=== PATIENT | male | born 1960 | race Caucasian/White ===

== ENCOUNTER 2019-12-16 14:58 | Observation (INO) ==
[2019-12-16] MEDS ORDERED: Aspirin 81 MG TAB.CHEW PO ONE (15:13)
[2019-12-16] MEDS ORDERED: Nitroglycerin 0.4 MG TAB.SUBL SL PRN (15:13)
[2019-12-16 16:02] LABS: Basophils % 0.9 %; Eosinophils # 0.1 K/mcL (0.0-0.6); Eosinophils % 1.4 %; Hematocrit 43.7 % (37.5-50.1); Hemoglobin 15.4 g/dL (12.9-16.9); Immature Granulocytes % 0.2 % (0-4); Lymphocytes # 1.4 K/mcL (0.6-4.6); Lymphocytes % 32.8 %; Mean Corpuscular HGB Conc 35.2 g/dL (31.6-35.5); Mean Corpuscular Hemoglobin 32.8 pg (28.0-33.3); Mean Corpuscular Volume 93.2 fL (83.0-100.0); Mean Platelet Volume 8.9 fL (9.4-12.4); Monocytes # 0.5 K/mcL (0.0-1.3); Monocytes % 12.6 %; Neutrophils # 2.2 K/mcL (1.6-8.9); Platelet Count 261 K/mcL (140-400); Red Blood Count 4.69 M/mcL (4.19-5.50); Red Cell Distribution Width 14.5 % (11.5-14.5); Segmented Neutrophils % 52.1 %; White Blood Count 4.3 K/mcL (4.3-11.1)
[2019-12-16 16:08] LABS: INR 0.9; Prothrombin Time 9.9 Seconds (9.4-12.1)
[2019-12-16 16:11] LABS: Activated Partial Thrombo Time 24.3 Seconds (26.0-36.0)
[2019-12-16] MEDS ORDERED: Isovue-370 500 ML BOTTLE IVP ONE (16:15)
[2019-12-16 16:22] LABS: Albumin 4.2 g/dL (3.5-5.7); Albumin/Globulin Ratio 1.7 (1.1-2.2); Bilirubin,Direct 0.1 mg/dL (0.0-0.2); Bilirubin,Indirect 0.3 mg/dL (0.0-1.0); Bilirubin,Total 0.4 mg/dL (0.3-1.0); Globulin 2.5 g/dL (2.4-3.5); Total Protein 6.7 g/dL (6.4-8.9)
[2019-12-16 16:24] LABS: BUN/Creatinine Ratio 11 (6-26); Blood Urea Nitrogen 9 mg/dL (8-23); Calcium 9.5 mg/dL (8.6-10.3); Carbon Dioxide 17 mEq/L (23-29); Chloride 99 mEq/L (98-107); Glucose 105 mg/dL (70-105); Osmolality,Calculated 273 (280-300); Sodium 132 mEq/L (136-145); eGFR For African Americans > 60 (> 60); eGFR For Non-African Americans > 60 (> 60)
[2019-12-16 16:25] LABS: Troponin I < 0.03 ng/mL (< 0.04)
[2019-12-16 17:47] LABS: Bilirubin,Urine Negative (Negative); Blood,Urine Negative (Negative); Clarity,Urine Clear (Clear); Color,Urine Yellow (Yellow); Glucose,Urine (UA) Normal (Normal); Ketones,Urine Negative (Negative); Leukocyte Esterase,Urine Negative (Negative); Nitrite,Urine Negative (Negative); PH,Urine 6.5 pH Units (5.0-8.0); Protein,Urine Trace mg/dL (Neg-Trace); Specific Gravity,Urine 1.019 (1.010-1.025); Urobilinogen,Urine Normal (Normal)
[2019-12-16] MEDS ORDERED: Naloxone 0.4 MG/ML INJ IVP PRN (18:20)
[2019-12-16] MEDS ORDERED: Ondansetron 4 MG/2 ML VIAL IVP PRN (18:20)
[2019-12-16] MEDS ORDERED: Perflutren Lipid Microsphere 1.3 ML in 0.9 % Sodium Chloride 8.7 ML IVP PRN (18:21)
[2019-12-16] MEDS ORDERED: *HR* LORazepam 2 MG/ML VIAL IVP PRN ×3 (18:23)
[2019-12-16] MEDS ORDERED: 0.9 % Sodium Chloride 1,000 ML IVC SCH (18:30)
[2019-12-16 18:53] LABS: Amphetamine Screen,Urine Negative ng/mL (Cutoff=1000); Barbiturate Screen,Urine Negative ng/mL (Cutoff=200); Benzodiazepines Screen,Urine Negative ng/mL (Cutoff=200); Cannabinoid Screen,Urine Positive ng/mL (Cutoff = 50); Cocaine Screen,Urine Negative ng/mL (Cutoff= 300); Opiate Screen,Urine Negative ng/mL (Cutoff=300); Phencyclidine Screen,Urine Negative ng/mL (Cutoff=25)
[2019-12-17 04:11] LABS: Basophils % 0.6 %; Eosinophils # 0.2 K/mcL (0.0-0.6); Eosinophils % 3.2 %; Hematocrit 43.9 % (37.5-50.1); Hemoglobin 15.2 g/dL (12.9-16.9); Immature Granulocytes % 0.2 % (0-4); Lymphocytes # 1.7 K/mcL (0.6-4.6); Lymphocytes % 33.9 %; Mean Corpuscular HGB Conc 34.6 g/dL (31.6-35.5); Mean Corpuscular Hemoglobin 32.3 pg (28.0-33.3); Mean Corpuscular Volume 93.4 fL (83.0-100.0); Mean Platelet Volume 9.1 fL (9.4-12.4); Monocytes # 0.8 K/mcL (0.0-1.3); Monocytes % 16.4 %; Neutrophils # 2.3 K/mcL (1.6-8.9); Platelet Count 255 K/mcL (140-400); Red Cell Distribution Width 14.6 % (11.5-14.5); Segmented Neutrophils % 45.7 %; White Blood Count 4.9 K/mcL (4.3-11.1)
[2019-12-17 04:23] LABS: BUN/Creatinine Ratio 19 (6-26); Blood Urea Nitrogen 13 mg/dL (8-23); Carbon Dioxide 25 mEq/L (23-29); Chloride 102 mEq/L (98-107); Glucose 85 mg/dL (70-105); Osmolality,Calculated 279 (280-300); Potassium 4.1 mEq/L (3.5-5.1); Sodium 135 mEq/L (136-145); eGFR For African Americans > 60 (> 60); eGFR For Non-African Americans > 60 (> 60)
[2019-12-17 04:24] LABS: Troponin I < 0.03 ng/mL (< 0.04)
[2019-12-17] MEDS ORDERED: *HR* Heparin 5,000 UNIT/ML VIAL SQ SCH (06:00)
[2019-12-17] MEDS ORDERED: SUMAtriptan succinate 50 MG TABLET PO PRN (08:03)
[2019-12-17] MEDS ORDERED: lisinopriL 10 MG TABLET PO SCH (09:00)
[2019-12-17] MEDS ORDERED: Aspirin Enteric Coated 81 MG Tablet PO SCH (09:00)
[2019-12-17] MEDS ORDERED: Multivit/Ca/Min/Fe/FA 1 TAB TABLET PO SCH (09:00)
[2019-12-17] MEDS ORDERED: Cholecalciferol (D-3) 1,000 UNIT (25MCG) TABLET PO SCH (09:00)
[2019-12-17] MEDS ORDERED: predniSONE 20 MG TABLET PO SCH (09:00)
[2019-12-17 10:58] VITALS: BP 126/74
== END 2019-12-17 13:03 | disposition home or self-care (01) ==
LOC: 3BNU 14:58 → EMEROOARM 14:58 → 3BNU 19:52
PROVIDERS: ADMIT Internal Medicine; ATTEND Internal Medicine

== ENCOUNTER 2020-07-04 17:53 | Inpatient (IN) ==
[2020-07-04] MEDS ORDERED: *HR* LORazepam 2 MG/ML VIAL IVP ONE (18:12)
[2020-07-04 18:41] LABS: Basophils % 0.6 %; Eosinophils # 0.2 K/mcL (0.0-0.6); Eosinophils % 3.4 %; Hematocrit 40.8 % (37.5-50.1); Hemoglobin 14.5 g/dL (12.9-16.9); Immature Granulocytes % 0.2 % (0-4); Lymphocytes # 2.9 K/mcL (0.6-4.6); Lymphocytes % 44.6 %; Mean Corpuscular HGB Conc 35.5 g/dL (31.6-35.5); Mean Corpuscular Hemoglobin 32.9 pg (28.0-33.3); Mean Corpuscular Volume 92.5 fL (83.0-100.0); Mean Platelet Volume 8.9 fL (9.4-12.4); Monocytes # 0.6 K/mcL (0.0-1.3); Monocytes % 9.4 %; Neutrophils # 2.7 K/mcL (1.6-8.9); Platelet Count 234 K/mcL (140-400); Red Blood Count 4.41 M/mcL (4.19-5.50); Red Cell Distribution Width 13.8 % (11.5-14.5); Segmented Neutrophils % 41.8 %; White Blood Count 6.5 K/mcL (4.3-11.1)
[2020-07-04 19:11] LABS: Bilirubin,Urine Negative (Negative); Blood,Urine Negative (Negative); Clarity,Urine Clear (Clear); Color,Urine Colorless (Yellow); Glucose,Urine (UA) Normal (Normal); Ketones,Urine Negative (Negative); Leukocyte Esterase,Urine Negative (Negative); Nitrite,Urine Negative (Negative); Protein,Urine Negative (Neg-Trace); Specific Gravity,Urine < 1.005 (1.010-1.025); Urobilinogen,Urine Normal (Normal)
[2020-07-04 19:11] LABS: Acetaminophen < 10 mcg/mL (10-20); BUN/Creatinine Ratio 5 (6-26); Blood Urea Nitrogen 4 mg/dL (8-23); Carbon Dioxide 20 mEq/L (23-29); Chloride 96 mEq/L (98-107); Ethanol 416 mg/dL (Less than 10); Glucose 111 mg/dL (70-105); Osmolality,Calculated 266 (280-300); Potassium 4.1 mEq/L (3.5-5.1); Salicylate < 2.5 mg/dL (15.0-30.0); Sodium 129 mEq/L (136-145); eGFR For African Americans > 60 (> 60); eGFR For Non-African Americans > 60 (> 60)
[2020-07-04 19:22] LABS: Amphetamine Screen,Urine Negative ng/mL (Cutoff=1000); Barbiturate Screen,Urine Negative ng/mL (Cutoff=200); Benzodiazepines Screen,Urine Negative ng/mL (Cutoff=200); Cannabinoid Screen,Urine Positive ng/mL (Cutoff = 50); Cocaine Screen,Urine Negative ng/mL (Cutoff= 300); Opiate Screen,Urine Negative ng/mL (Cutoff=300); Phencyclidine Screen,Urine Negative ng/mL (Cutoff=25)
[2020-07-04] MEDS ORDERED: Naloxone 0.4 MG/ML INJ IVP PRN (20:02)
[2020-07-04] MEDS ORDERED: Ondansetron 4 MG/2 ML VIAL IVP PRN (20:02)
[2020-07-04] MEDS ORDERED: *HR* LORazepam 2 MG/ML VIAL IVP PRN ×3 (20:03→20:05)
[2020-07-04 20:44] LABS: Lipase 34 Units/L (11-82)
[2020-07-04] MEDS: 0.9 % Sodium Chloride 1,000 ML IVC SCH (22:52)
[2020-07-05 03:46] LABS: Basophils % 0.7 %; Eosinophils # 0.3 K/mcL (0.0-0.6); Eosinophils % 5.9 %; Hematocrit 43.1 % (37.5-50.1); Hemoglobin 14.9 g/dL (12.9-16.9); Immature Granulocytes % 0.5 % (0-4); Lymphocytes # 1.8 K/mcL (0.6-4.6); Lymphocytes % 41.8 %; Mean Corpuscular HGB Conc 34.6 g/dL (31.6-35.5); Mean Corpuscular Hemoglobin 32.5 pg (28.0-33.3); Mean Corpuscular Volume 94.1 fL (83.0-100.0); Mean Platelet Volume 9.1 fL (9.4-12.4); Monocytes # 0.4 K/mcL (0.0-1.3); Monocytes % 8.6 %; Neutrophils # 1.8 K/mcL (1.6-8.9); Platelet Count 225 K/mcL (140-400); Red Blood Count 4.58 M/mcL (4.19-5.50); Red Cell Distribution Width 14.3 % (11.5-14.5); Segmented Neutrophils % 42.5 %; White Blood Count 4.2 K/mcL (4.3-11.1)
[2020-07-05 04:06] LABS: Albumin 4.2 g/dL (3.5-5.7); Albumin/Globulin Ratio 1.6 (1.1-2.2); Bilirubin,Direct 0.1 mg/dL (0.0-0.2); Bilirubin,Indirect 0.3 mg/dL (0.0-1.0); Bilirubin,Total 0.4 mg/dL (0.3-1.0); Globulin 2.6 g/dL (2.4-3.5); Total Protein 6.8 g/dL (6.4-8.9)
[2020-07-05 04:08] LABS: BUN/Creatinine Ratio 6 (6-26); Blood Urea Nitrogen 5 mg/dL (8-23); Calcium 8.8 mg/dL (8.6-10.3); Carbon Dioxide 22 mEq/L (23-29); Chloride 102 mEq/L (98-107); Glucose 84 mg/dL (70-105); Osmolality,Calculated 276 (280-300); Potassium 3.9 mEq/L (3.5-5.1); Sodium 135 mEq/L (136-145); eGFR For African Americans > 60 (> 60); eGFR For Non-African Americans > 60 (> 60)
[2020-07-05] MEDS: *HR* Heparin 5,000 UNIT/ML VIAL SQ SCH ×2 (05:36→16:55)
[2020-07-05] MEDS: levETIRAcetam 250 MG TABLET PO SCH ×2 (05:37→16:56)
[2020-07-05] MEDS: Thiamine (B-1) 200 MG in 0.9 % Sodium Chloride 50 ML IVPB SCH (07:58)
[2020-07-05] MEDS: Folic Acid 1 MG TABLET PO SCH (07:58)
[2020-07-05] MEDS: 0.9 % Sodium Chloride 1,000 ML IVC SCH (12:43)
[2020-07-05] MEDS: *HR* LORazepam 2 MG/ML VIAL IVP PRN (20:27)
[2020-07-06 03:07] LABS: Basophils % 0.8 %; Eosinophils # 0.2 K/mcL (0.0-0.6); Eosinophils % 4.4 %; Hematocrit 39.5 % (37.5-50.1); Hemoglobin 13.8 g/dL (12.9-16.9); Immature Granulocytes % 0.2 % (0-4); Lymphocytes # 1.5 K/mcL (0.6-4.6); Lymphocytes % 31.7 %; Mean Corpuscular HGB Conc 34.9 g/dL (31.6-35.5); Mean Corpuscular Hemoglobin 32.7 pg (28.0-33.3); Mean Corpuscular Volume 93.6 fL (83.0-100.0); Mean Platelet Volume 9.1 fL (9.4-12.4); Monocytes # 0.6 K/mcL (0.0-1.3); Monocytes % 11.9 %; Neutrophils # 2.5 K/mcL (1.6-8.9); Platelet Count 219 K/mcL (140-400); Red Blood Count 4.22 M/mcL (4.19-5.50); Red Cell Distribution Width 14.2 % (11.5-14.5); White Blood Count 4.8 K/mcL (4.3-11.1)
[2020-07-06 03:26] LABS: Alanine Aminotransferase 121 Units/L (7-52); Albumin 3.6 g/dL (3.5-5.7); Albumin/Globulin Ratio 1.6 (1.1-2.2); Alkaline Phosphatase 42 Units/L (34-104); Aspartate Amino Transferase 107 Units/L (13-39); BUN/Creatinine Ratio 18 (6-26); Bilirubin,Direct 0.2 mg/dL (0.0-0.2); Bilirubin,Indirect 0.7 mg/dL (0.0-1.0); Bilirubin,Total 0.9 mg/dL (0.3-1.0); Blood Urea Nitrogen 15 mg/dL (8-23); Calcium 8.8 mg/dL (8.6-10.3); Carbon Dioxide 24 mEq/L (23-29); Chloride 104 mEq/L (98-107); Globulin 2.3 g/dL (2.4-3.5); Glucose 86 mg/dL (70-105); Osmolality,Calculated 282 (280-300); Potassium 3.7 mEq/L (3.5-5.1); Sodium 136 mEq/L (136-145); Total Protein 5.9 g/dL (6.4-8.9); eGFR For African Americans > 60 (> 60); eGFR For Non-African Americans > 60 (> 60)
[2020-07-06] MEDS: levETIRAcetam 250 MG TABLET PO SCH ×2 (04:59→16:54)
[2020-07-06] MEDS: *HR* Heparin 5,000 UNIT/ML VIAL SQ SCH ×2 (04:59→16:54)
[2020-07-06] MEDS: Folic Acid 1 MG TABLET PO SCH (09:02)
[2020-07-06] MEDS: lisinopriL 20 MG TABLET PO SCH (09:02)
[2020-07-06] MEDS: Aspirin Enteric Coated 81 MG Tablet PO SCH (09:02)
[2020-07-06] MEDS: Thiamine (B-1) 200 MG in 0.9 % Sodium Chloride 50 ML IVPB SCH (09:03)
[2020-07-07] MEDS: *HR* LORazepam 2 MG/ML VIAL IVP PRN (02:43)
[2020-07-07] MEDS: *HR* Heparin 5,000 UNIT/ML VIAL SQ SCH ×2 (04:52→17:13)
[2020-07-07] MEDS: levETIRAcetam 250 MG TABLET PO SCH ×2 (04:53→17:13)
[2020-07-07 05:30] LABS: Mean Corpuscular HGB Conc 34.1 g/dL (31.6-35.5); Mean Corpuscular Hemoglobin 32.3 pg (28.0-33.3); Mean Corpuscular Volume 94.6 fL (83.0-100.0); Mean Platelet Volume 9.3 fL (9.4-12.4); Platelet Count 239 K/mcL (140-400); Red Blood Count 4.65 M/mcL (4.19-5.50); Red Cell Distribution Width 14.1 % (11.5-14.5); White Blood Count 4.9 K/mcL (4.3-11.1)
[2020-07-07 05:41] LABS: Alanine Aminotransferase 92 Units/L (7-52); Albumin 3.9 g/dL (3.5-5.7); Albumin/Globulin Ratio 1.6 (1.1-2.2); Alkaline Phosphatase 43 Units/L (34-104); Aspartate Amino Transferase 63 Units/L (13-39); BUN/Creatinine Ratio 16 (6-26); Bilirubin,Direct 0.1 mg/dL (0.0-0.2); Bilirubin,Indirect 0.6 mg/dL (0.0-1.0); Bilirubin,Total 0.7 mg/dL (0.3-1.0); Blood Urea Nitrogen 12 mg/dL (8-23); Calcium 9.1 mg/dL (8.6-10.3); Carbon Dioxide 23 mEq/L (23-29); Chloride 105 mEq/L (98-107); Globulin 2.5 g/dL (2.4-3.5); Glucose 107 mg/dL (70-105); Osmolality,Calculated 282 (280-300); Potassium 4.1 mEq/L (3.5-5.1); Sodium 136 mEq/L (136-145); Total Protein 6.4 g/dL (6.4-8.9); eGFR For African Americans > 60 (> 60); eGFR For Non-African Americans > 60 (> 60)
[2020-07-07] MEDS: lisinopriL 20 MG TABLET PO SCH (08:27)
[2020-07-07] MEDS: Thiamine (B-1) 200 MG in 0.9 % Sodium Chloride 50 ML IVPB SCH (08:27)
[2020-07-07] MEDS: Folic Acid 1 MG TABLET PO SCH (08:27)
[2020-07-07] MEDS: Aspirin Enteric Coated 81 MG Tablet PO SCH (08:27)
[2020-07-08] MEDS: levETIRAcetam 250 MG TABLET PO SCH ×2 (04:49→16:40)
[2020-07-08] MEDS: *HR* Heparin 5,000 UNIT/ML VIAL SQ SCH ×2 (04:50→16:40)
[2020-07-08 06:12] LABS: Hematocrit 41.6 % (37.5-50.1); Hemoglobin 14.4 g/dL (12.9-16.9); Mean Corpuscular HGB Conc 34.6 g/dL (31.6-35.5); Mean Corpuscular Hemoglobin 33.1 pg (28.0-33.3); Mean Corpuscular Volume 95.6 fL (83.0-100.0); Mean Platelet Volume 9.9 fL (9.4-12.4); Platelet Count 216 K/mcL (140-400); Red Blood Count 4.35 M/mcL (4.19-5.50); Red Cell Distribution Width 14.2 % (11.5-14.5); White Blood Count 4.6 K/mcL (4.3-11.1)
[2020-07-08] MEDS: *HR* LORazepam 2 MG/ML VIAL IVP PRN ×2 (07:27→20:30)
[2020-07-08] MEDS: Aspirin Enteric Coated 81 MG Tablet PO SCH (07:28)
[2020-07-08] MEDS: Folic Acid 1 MG TABLET PO SCH (07:28)
[2020-07-08] MEDS: lisinopriL 20 MG TABLET PO SCH (07:28)
[2020-07-08] MEDS: Thiamine (B-1) 100 MG TABLET PO SCH (12:16)
[2020-07-08 12:37] LABS: Alanine Aminotransferase 93 Units/L (7-52); Albumin/Globulin Ratio 1.6 (1.1-2.2); Alkaline Phosphatase 47 Units/L (34-104); Aspartate Amino Transferase 71 Units/L (13-39); BUN/Creatinine Ratio 13 (6-26); Bilirubin,Total 0.5 mg/dL (0.3-1.0); Blood Urea Nitrogen 11 mg/dL (8-23); Calcium 9.6 mg/dL (8.6-10.3); Carbon Dioxide 29 mEq/L (23-29); Chloride 103 mEq/L (98-107); Globulin 2.5 g/dL (2.4-3.5); Glucose 99 mg/dL (70-105); Osmolality,Calculated 281 (280-300); Potassium 4.4 mEq/L (3.5-5.1); Sodium 136 mEq/L (136-145); Total Protein 6.5 g/dL (6.4-8.9); eGFR For African Americans > 60 (> 60); eGFR For Non-African Americans > 60 (> 60)
[2020-07-08] MEDS ORDERED: Menthol 9.1 MG LOZENGE PO PRN (20:29)
[2020-07-08] MEDS: Melatonin 3 MG TABLET PO PRN (23:16)
[2020-07-09] MEDS: *HR* Heparin 5,000 UNIT/ML VIAL SQ SCH ×2 (05:10→17:20)
[2020-07-09] MEDS: levETIRAcetam 250 MG TABLET PO SCH ×2 (05:10→17:21)
[2020-07-09 05:56] LABS: Hematocrit 40.9 % (37.5-50.1); Hemoglobin 13.9 g/dL (12.9-16.9); Mean Corpuscular Hemoglobin 32.3 pg (28.0-33.3); Mean Corpuscular Volume 95.1 fL (83.0-100.0); Mean Platelet Volume 9.5 fL (9.4-12.4); Platelet Count 232 K/mcL (140-400); Red Cell Distribution Width 14.2 % (11.5-14.5); White Blood Count 5.5 K/mcL (4.3-11.1)
[2020-07-09 06:19] LABS: Alanine Aminotransferase 89 Units/L (7-52); Albumin 3.9 g/dL (3.5-5.7); Albumin/Globulin Ratio 1.6 (1.1-2.2); Alkaline Phosphatase 44 Units/L (34-104); Aspartate Amino Transferase 63 Units/L (13-39); BUN/Creatinine Ratio 15 (6-26); Bilirubin,Total 0.5 mg/dL (0.3-1.0); Blood Urea Nitrogen 13 mg/dL (8-23); Calcium 9.4 mg/dL (8.6-10.3); Carbon Dioxide 27 mEq/L (23-29); Chloride 103 mEq/L (98-107); Globulin 2.5 g/dL (2.4-3.5); Glucose 102 mg/dL (70-105); Osmolality,Calculated 282 (280-300); Sodium 136 mEq/L (136-145); Total Protein 6.4 g/dL (6.4-8.9); eGFR For African Americans > 60 (> 60); eGFR For Non-African Americans > 60 (> 60)
[2020-07-09] MEDS: Ibuprofen 400 MG TABLET PO PRN ×2 (08:54→19:47)
[2020-07-09] MEDS: lisinopriL 20 MG TABLET PO SCH (08:55)
[2020-07-09] MEDS: Thiamine (B-1) 100 MG TABLET PO SCH (08:55)
[2020-07-09] MEDS: Folic Acid 1 MG TABLET PO SCH (08:55)
[2020-07-09] MEDS: Aspirin Enteric Coated 81 MG Tablet PO SCH (08:55)
[2020-07-09] MEDS: Melatonin 3 MG TABLET PO PRN (19:47)
[2020-07-10] MEDS: *HR* Heparin 5,000 UNIT/ML VIAL SQ SCH (05:20)
[2020-07-10] MEDS: levETIRAcetam 250 MG TABLET PO SCH (05:20)
[2020-07-10] MEDS: lisinopriL 20 MG TABLET PO SCH (08:02)
[2020-07-10] MEDS: Thiamine (B-1) 100 MG TABLET PO SCH (08:02)
[2020-07-10] MEDS: Aspirin Enteric Coated 81 MG Tablet PO SCH (08:02)
[2020-07-10] MEDS: Folic Acid 1 MG TABLET PO SCH (08:02)
[2020-07-10 12:27] LABS: Adenovirus Not Detected (Not Detect); Bordetella Pertussis Not Detected (Not Detect); Chlamydophila pneumoniae Not Detected (Not Detect); Coronavirus 229E Not Detected (Not Detect); Coronavirus HKU1 Not Detected (Not Detect); Coronavirus NL63 Not Detected (Not Detect); Coronavirus OC43 Not Detected (Not Detect); Human Metapneumovirus Not Detected (Not Detect); Human Rhinovirus/Enterovirus Not Detected (Not Detect); Influenza A Subtype 2009 H1 Not Detected (Not Detect); Influenza B Not Detected (Not Detect); Mycoplasma pneumoniae Not Detected (Not Detect); Parainfluenza Virus 1 Not Detected (Not Detect); Parainfluenza Virus 2 Not Detected (Not Detect); Parainfluenza Virus 3 Not Detected (Not Detect); Parainfluenza Virus 4 Not Detected (Not Detect); Respiratory Syncytial Virus Not Detected (Not Detect); SARS-CoV-2 Not Detected (Not Detect)
[2020-07-10 15:52] VITALS: BP 108/45
== END 2020-07-10 18:00 | DRG 101 ==
LOC: 3BNU 17:53 → EMEROOARM 17:53 → 3BNU 21:11 → SUATTDRO 07-06 14:45
PROVIDERS: ADMIT Student in an Organized Health Care Education/Training Program; ATTEND Registered Nurse

== ENCOUNTER 2020-10-13 21:18 | Observation (INO) ==
[2020-10-13 21:47] LABS: Basophils % 0.4 %; Eosinophils # 0.1 K/mcL (0.0-0.6); Eosinophils % 2.7 %; Hemoglobin 13.9 g/dL (12.9-16.9); Immature Granulocytes % 0.2 % (0-4); Lymphocytes # 1.9 K/mcL (0.6-4.6); Lymphocytes % 36.8 %; Mean Corpuscular HGB Conc 35.6 g/dL (31.6-35.5); Mean Corpuscular Hemoglobin 33.3 pg (28.0-33.3); Mean Corpuscular Volume 93.3 fL (83.0-100.0); Mean Platelet Volume 9.3 fL (9.4-12.4); Monocytes # 0.5 K/mcL (0.0-1.3); Monocytes % 9.7 %; Neutrophils # 2.6 K/mcL (1.6-8.9); Platelet Count 233 K/mcL (140-400); Red Blood Count 4.18 M/mcL (4.19-5.50); Red Cell Distribution Width 13.5 % (11.5-14.5); Segmented Neutrophils % 50.2 %; White Blood Count 5.1 K/mcL (4.3-11.1)
[2020-10-13 22:07] LABS: Acetaminophen < 10 mcg/mL (10-20); Alanine Aminotransferase 38 Units/L (7-52); Albumin 4.3 g/dL (3.5-5.7); Albumin/Globulin Ratio 1.8 (1.1-2.2); Alkaline Phosphatase 44 Units/L (34-104); Aspartate Amino Transferase 49 Units/L (13-39); BUN/Creatinine Ratio 11 (6-26); Bilirubin,Direct 0.1 mg/dL (0.0-0.2); Bilirubin,Indirect 0.3 mg/dL (0.0-1.0); Bilirubin,Total 0.4 mg/dL (0.3-1.0); Blood Urea Nitrogen 8 mg/dL (8-23); Calcium 8.7 mg/dL (8.6-10.3); Carbon Dioxide 21 mEq/L (23-29); Chloride 102 mEq/L (98-107); Ethanol 243 mg/dL (Less than 10); Globulin 2.4 g/dL (2.4-3.5); Glucose 105 mg/dL (70-105); Osmolality,Calculated 275 (280-300); Potassium 3.6 mEq/L (3.5-5.1); Sodium 133 mEq/L (136-145); Total Protein 6.7 g/dL (6.4-8.9); eGFR For African Americans > 60 (> 60); eGFR For Non-African Americans > 60 (> 60)
[2020-10-13 22:09] LABS: Bilirubin,Urine Negative (Negative); Blood,Urine Negative (Negative); Clarity,Urine Clear (Clear); Color,Urine Colorless (Yellow); Glucose,Urine (UA) Normal (Normal); Ketones,Urine Negative (Negative); Leukocyte Esterase,Urine Negative (Negative); Nitrite,Urine Negative (Negative); Protein,Urine Negative (Neg-Trace); Specific Gravity,Urine < 1.005 (1.010-1.025); Urobilinogen,Urine Normal (Normal)
[2020-10-13] MEDS ORDERED: *HR* LORazepam 2 MG/ML VIAL IM PRN (22:21)
[2020-10-13 22:31] LABS: Amphetamine Screen,Urine Negative ng/mL (Cutoff=1000); Barbiturate Screen,Urine Negative ng/mL (Cutoff=200); Benzodiazepines Screen,Urine Negative ng/mL (Cutoff=200); Cannabinoid Screen,Urine Positive ng/mL (Cutoff = 50); Cocaine Screen,Urine Negative ng/mL (Cutoff= 300); Opiate Screen,Urine Negative ng/mL (Cutoff=300); Phencyclidine Screen,Urine Negative ng/mL (Cutoff=25)
[2020-10-13] MEDS ORDERED: 0.9 % Sodium Chloride 1,000 ML IV ONE (23:56)
[2020-10-14] MEDS ORDERED: *HR* LORazepam 2 MG/ML VIAL IVP PRN ×3 (00:04→00:37)
[2020-10-14] MEDS ORDERED: Ondansetron 4 MG/2 ML VIAL IVP PRN (00:36)
[2020-10-14] MEDS ORDERED: Naloxone 0.4 MG/ML INJ IVP PRN (00:36)
[2020-10-14] MEDS ORDERED: 0.9 % Sodium Chloride 1,000 ML IVC SCH (00:45)
[2020-10-14] MEDS: Thiamine (B-1) 100 MG, Folic Acid 1 MG, MVI, adult with vitamin K 10 ML in 0.9 % Sodi... IVPB SCH ×2 (04:50→18:16)
[2020-10-14 06:39] LABS: Hematocrit 41.5 % (37.5-50.1); Hemoglobin 14.5 g/dL (12.9-16.9); Mean Corpuscular HGB Conc 34.9 g/dL (31.6-35.5); Mean Corpuscular Hemoglobin 33.1 pg (28.0-33.3); Mean Platelet Volume 9.2 fL (9.4-12.4); Platelet Count 227 K/mcL (140-400); Red Blood Count 4.38 M/mcL (4.19-5.50); Red Cell Distribution Width 13.9 % (11.5-14.5); White Blood Count 3.6 K/mcL (4.3-11.1)
[2020-10-14 06:41] LABS: Mean Corpuscular Volume 94.7 fL (83.0-100.0)
[2020-10-14 06:56] LABS: BUN/Creatinine Ratio 10 (6-26); Blood Urea Nitrogen 6 mg/dL (8-23); Calcium 8.3 mg/dL (8.6-10.3); Carbon Dioxide 22 mEq/L (23-29); Chloride 110 mEq/L (98-107); Glucose 87 mg/dL (70-105); Osmolality,Calculated 287 (280-300); Sodium 140 mEq/L (136-145); eGFR For African Americans > 60 (> 60); eGFR For Non-African Americans > 60 (> 60)
[2020-10-14] MEDS: *HR* LORazepam 2 MG/ML VIAL IVP PRN ×2 (06:57→23:36)
[2020-10-14] MEDS ORDERED: Gabapentin 300 MG CAPSULE PO PRN (11:32)
[2020-10-14] MEDS ORDERED: Thiamine (B-1) 100 MG, Folic Acid 1 MG, MVI, adult with vitamin K 10 ML in 0.9 % Sodi... IVPB SCH (18:00)
[2020-10-14] MEDS: levETIRAcetam 250 MG TABLET PO SCH (18:16)
[2020-10-15 05:42] LABS: Basophils % 0.8 %; Eosinophils # 0.2 K/mcL (0.0-0.6); Eosinophils % 6.4 %; Hematocrit 41.4 % (37.5-50.1); Hemoglobin 14.3 g/dL (12.9-16.9); Immature Granulocytes % 0.3 % (0-4); Lymphocytes # 1.6 K/mcL (0.6-4.6); Lymphocytes % 41.7 %; Mean Corpuscular HGB Conc 34.5 g/dL (31.6-35.5); Mean Corpuscular Hemoglobin 32.6 pg (28.0-33.3); Mean Corpuscular Volume 94.5 fL (83.0-100.0); Mean Platelet Volume 9.6 fL (9.4-12.4); Monocytes # 0.4 K/mcL (0.0-1.3); Monocytes % 10.7 %; Neutrophils # 1.5 K/mcL (1.6-8.9); Platelet Count 210 K/mcL (140-400); Red Blood Count 4.38 M/mcL (4.19-5.50); Red Cell Distribution Width 13.8 % (11.5-14.5); Segmented Neutrophils % 40.1 %; White Blood Count 3.7 K/mcL (4.3-11.1)
[2020-10-15] MEDS: levETIRAcetam 250 MG TABLET PO SCH (05:51)
[2020-10-15 06:02] LABS: BUN/Creatinine Ratio 17 (6-26); Blood Urea Nitrogen 11 mg/dL (8-23); Calcium 8.6 mg/dL (8.6-10.3); Carbon Dioxide 23 mEq/L (23-29); Chloride 108 mEq/L (98-107); Glucose 92 mg/dL (70-105); Osmolality,Calculated 285 (280-300); Potassium 3.6 mEq/L (3.5-5.1); Sodium 138 mEq/L (136-145); eGFR For African Americans > 60 (> 60); eGFR For Non-African Americans > 60 (> 60)
[2020-10-15] MEDS ORDERED: lisinopriL 10 MG TABLET PO SCH (09:00)
[2020-10-15 11:03] VITALS: BP 120/67
[2020-10-16] MEDS ORDERED: *HR* Enoxaparin 40 MG/0.4 ML SYRINGE SQ SCH (06:00)
== END 2020-10-15 15:02 | disposition home or self-care (01) ==
LOC: 3NENU 21:18 → EMEROOARM 21:18 → SUATTDRO 10-14 00:16 → 3NENU 10-14 00:47 → 3BNU 10-14 18:36
PROVIDERS: ADMIT Student in an Organized Health Care Education/Training Program; ATTEND Student in an Organized Health Care Education/Training Program

== ENCOUNTER 2020-10-28 19:48 | Observation (INO) ==
[2020-10-28 20:32] LABS: Basophils # 0.1 K/mcL (0.0-0.2); Basophils % 0.8 %; Eosinophils # 0.3 K/mcL (0.0-0.6); Eosinophils % 4.8 %; Hematocrit 44.5 % (37.5-50.1); Hemoglobin 15.5 g/dL (12.9-16.9); Immature Granulocytes % 0.2 % (0-4); Lymphocytes # 2.7 K/mcL (0.6-4.6); Lymphocytes % 43.7 %; Mean Corpuscular HGB Conc 34.8 g/dL (31.6-35.5); Mean Corpuscular Hemoglobin 32.1 pg (28.0-33.3); Mean Corpuscular Volume 92.1 fL (83.0-100.0); Mean Platelet Volume 8.9 fL (9.4-12.4); Monocytes # 0.6 K/mcL (0.0-1.3); Monocytes % 9.8 %; Neutrophils # 2.5 K/mcL (1.6-8.9); Platelet Count 256 K/mcL (140-400); Red Blood Count 4.83 M/mcL (4.19-5.50); Red Cell Distribution Width 14.1 % (11.5-14.5); Segmented Neutrophils % 40.7 %; White Blood Count 6.2 K/mcL (4.3-11.1)
[2020-10-28 20:42] LABS: Bilirubin,Urine Negative (Negative); Blood,Urine Negative (Negative); Clarity,Urine Clear (Clear); Color,Urine Colorless (Yellow); Glucose,Urine (UA) Normal (Normal); Ketones,Urine Negative (Negative); Leukocyte Esterase,Urine Negative (Negative); Nitrite,Urine Negative (Negative); PH,Urine 6.5 pH Units (5.0-8.0); Protein,Urine Negative (Neg-Trace); Specific Gravity,Urine < 1.005 (1.010-1.025); Urobilinogen,Urine Normal (Normal)
[2020-10-28 20:51] LABS: Acetaminophen < 10 mcg/mL (10-20); BUN/Creatinine Ratio 8 (6-26); Blood Urea Nitrogen 5 mg/dL (8-23); Calcium 9.4 mg/dL (8.6-10.3); Carbon Dioxide 24 mEq/L (23-29); Chloride 99 mEq/L (98-107); Ethanol 242 mg/dL (Less than 10); Glucose 105 mg/dL (70-105); Osmolality,Calculated 276 (280-300); Salicylate < 2.5 mg/dL (15.0-30.0); Sodium 134 mEq/L (136-145); eGFR For African Americans > 60 (> 60); eGFR For Non-African Americans > 60 (> 60)
[2020-10-28 20:54] LABS: Amphetamine Screen,Urine Negative ng/mL (Cutoff=1000); Barbiturate Screen,Urine Negative ng/mL (Cutoff=200); Benzodiazepines Screen,Urine Negative ng/mL (Cutoff=200); Cannabinoid Screen,Urine Positive ng/mL (Cutoff = 50); Cocaine Screen,Urine Negative ng/mL (Cutoff= 300); Opiate Screen,Urine Negative ng/mL (Cutoff=300); Phencyclidine Screen,Urine Negative ng/mL (Cutoff=25)
[2020-10-28] MEDS ORDERED: *HR* LORazepam 2 MG/ML VIAL IVP ONE (23:48)
[2020-10-29] MEDS ORDERED: Naloxone 0.4 MG/ML INJ IVP PRN (00:24)
[2020-10-29] MEDS ORDERED: Melatonin 3 MG TABLET PO PRN (00:24)
[2020-10-29] MEDS ORDERED: Acetaminophen 325 MG TABLET PO PRN (00:24)
[2020-10-29] MEDS ORDERED: Ondansetron 4 MG/2 ML VIAL IVP PRN (00:24)
[2020-10-29] MEDS ORDERED: *HR* LORazepam 2 MG/ML VIAL IVP PRN ×3 (00:25)
[2020-10-29] MEDS: Thiamine (B-1) 100 MG, Folic Acid 1 MG, MVI, adult with vitamin K 10 ML in 0.9 % Sodi... IVPB SCH ×2 (01:00→17:41)
[2020-10-29] MEDS: levETIRAcetam 250 MG TABLET PO SCH ×2 (12:39→17:40)
[2020-10-29] MEDS ORDERED: levETIRAcetam 250 MG TABLET PO SCH (18:00)
[2020-10-29] MEDS: Magnesium Oxide 400 MG TABLET PO SCH (20:27)
[2020-10-30 05:12] LABS: BUN/Creatinine Ratio 15 (6-26); Blood Urea Nitrogen 11 mg/dL (8-23); Calcium 9.1 mg/dL (8.6-10.3); Carbon Dioxide 26 mEq/L (23-29); Chloride 101 mEq/L (98-107); Glucose 84 mg/dL (70-105); Magnesium 2.1 mg/dL (1.6-2.6); Osmolality,Calculated 279 (280-300); Potassium 3.9 mEq/L (3.5-5.1); Sodium 135 mEq/L (136-145); eGFR For African Americans > 60 (> 60); eGFR For Non-African Americans > 60 (> 60)
[2020-10-30] MEDS: levETIRAcetam 250 MG TABLET PO SCH ×2 (06:04→16:45)
[2020-10-30] MEDS: Aspirin Enteric Coated 81 MG Tablet PO SCH (08:41)
[2020-10-30] MEDS: Thiamine (B-1) 100 MG, Folic Acid 1 MG, MVI, adult with vitamin K 10 ML in 0.9 % Sodi... IVPB SCH (16:44)
[2020-10-30 18:22] LABS: Adenovirus Not Detected (Not Detect); Bordetella Pertussis Not Detected (Not Detect); Chlamydophila pneumoniae Not Detected (Not Detect); Coronavirus 229E Not Detected (Not Detect); Coronavirus HKU1 Not Detected (Not Detect); Coronavirus NL63 Not Detected (Not Detect); Coronavirus OC43 Not Detected (Not Detect); Human Metapneumovirus Not Detected (Not Detect); Human Rhinovirus/Enterovirus Not Detected (Not Detect); Influenza A Subtype 2009 H1 Not Detected (Not Detect); Influenza B Not Detected (Not Detect); Mycoplasma pneumoniae Not Detected (Not Detect); Parainfluenza Virus 1 Not Detected (Not Detect); Parainfluenza Virus 2 Not Detected (Not Detect); Parainfluenza Virus 3 Not Detected (Not Detect); Parainfluenza Virus 4 Not Detected (Not Detect); Respiratory Syncytial Virus Not Detected (Not Detect); SARS-CoV-2 Not Detected (Not Detect)
[2020-10-30] MEDS: Magnesium Oxide 400 MG TABLET PO SCH (20:19)
[2020-10-31 03:35] VITALS: BP 136/82
[2020-10-31] MEDS: levETIRAcetam 250 MG TABLET PO SCH (05:10)
[2020-10-31] MEDS: Aspirin Enteric Coated 81 MG Tablet PO SCH (08:20)
== END 2020-10-31 14:44 ==
LOC: EMEROOARM 19:48 → 3BNU 19:48 → SUATTDRO 22:23 → 3BNU 22:50
PROVIDERS: ADMIT Internal Medicine; ATTEND Internal Medicine

== ENCOUNTER 2020-12-28 19:24 | Observation (INO) ==
[2020-12-28 20:53] LABS: Bilirubin,Urine Negative (Negative); Blood,Urine Negative (Negative); Clarity,Urine Clear (Clear); Color,Urine Colorless (Yellow); Glucose,Urine (UA) Normal (Normal); Ketones,Urine Negative (Negative); Leukocyte Esterase,Urine Negative (Negative); Nitrite,Urine Negative (Negative); PH,Urine 6.5 pH Units (5.0-8.0); Protein,Urine Negative (Neg-Trace); Specific Gravity,Urine 1.005 (1.010-1.025); Urobilinogen,Urine Normal (Normal)
[2020-12-28 20:58] LABS: Hematocrit 43.7 % (37.5-50.1); Hemoglobin 15.7 g/dL (12.9-16.9); Mean Corpuscular HGB Conc 35.9 g/dL (31.6-35.5); Mean Corpuscular Hemoglobin 32.9 pg (28.0-33.3); Mean Corpuscular Volume 91.6 fL (83.0-100.0); Mean Platelet Volume 9.1 fL (9.4-12.4); Platelet Count 282 K/mcL (140-400); Red Blood Count 4.77 M/mcL (4.19-5.50); Red Cell Distribution Width 13.3 % (11.5-14.5); Segmented Neutrophils % 41.2 %; White Blood Count 6.4 K/mcL (4.3-11.1)
[2020-12-28 20:59] LABS: Basophils # 0.1 K/mcL (0.0-0.2); Basophils % 0.8 %; Eosinophils # 0.2 K/mcL (0.0-0.6); Eosinophils % 3.6 %; Immature Granulocytes % 0.2 % (0-4); Lymphocytes # 2.8 K/mcL (0.6-4.6); Lymphocytes % 44.6 %; Monocytes # 0.6 K/mcL (0.0-1.3); Monocytes % 9.6 %; Neutrophils # 2.6 K/mcL (1.6-8.9)
[2020-12-28 21:04] LABS: Amphetamine Screen,Urine Negative ng/mL (Cutoff=1000); Barbiturate Screen,Urine Negative ng/mL (Cutoff=200); Benzodiazepines Screen,Urine Negative ng/mL (Cutoff=200); Cannabinoid Screen,Urine Positive ng/mL (Cutoff = 50); Cocaine Screen,Urine Negative ng/mL (Cutoff= 300); Opiate Screen,Urine Negative ng/mL (Cutoff=300); Phencyclidine Screen,Urine Negative ng/mL (Cutoff=25)
[2020-12-28 21:09] LABS: Acetaminophen < 10 mcg/mL (10-20); BUN/Creatinine Ratio 7 (6-26); Blood Urea Nitrogen 5 mg/dL (8-23); Calcium 9.6 mg/dL (8.6-10.3); Carbon Dioxide 22 mEq/L (23-29); Chloride 100 mEq/L (98-107); Ethanol 327 mg/dL (Less than 10); Glucose 93 mg/dL (70-105); Osmolality,Calculated 277 (280-300); Salicylate < 2.5 mg/dL (15.0-30.0); Sodium 135 mEq/L (136-145); eGFR For African Americans > 60 (> 60); eGFR For Non-African Americans > 60 (> 60)
[2020-12-28] MEDS ORDERED: levETIRAcetam 250 MG TABLET PO STA (21:51)
[2020-12-28] MEDS ORDERED: Magnesium Oxide 400 MG TABLET PO STA (21:51)
[2020-12-28] MEDS ORDERED: *HR* LORazepam 2 MG/ML VIAL IVP PRN ×3 (22:44)
[2020-12-28] MEDS ORDERED: Naloxone 0.4 MG/ML INJ IVP PRN (22:44)
[2020-12-28] MEDS ORDERED: Melatonin 3 MG TABLET PO PRN (22:44)
[2020-12-29 04:59] LABS: Basophils % 0.8 %; Eosinophils # 0.2 K/mcL (0.0-0.6); Hematocrit 45.7 % (37.5-50.1); Hemoglobin 16.2 g/dL (12.9-16.9); Immature Granulocytes % 0.4 % (0-4); Lymphocytes # 1.8 K/mcL (0.6-4.6); Lymphocytes % 34.9 %; Mean Corpuscular HGB Conc 35.4 g/dL (31.6-35.5); Mean Corpuscular Hemoglobin 32.7 pg (28.0-33.3); Mean Corpuscular Volume 92.1 fL (83.0-100.0); Monocytes # 0.5 K/mcL (0.0-1.3); Monocytes % 9.9 %; Neutrophils # 2.5 K/mcL (1.6-8.9); Platelet Count 265 K/mcL (140-400); Red Blood Count 4.96 M/mcL (4.19-5.50); Red Cell Distribution Width 13.7 % (11.5-14.5)
[2020-12-29 05:22] LABS: BUN/Creatinine Ratio 10 (6-26); Blood Urea Nitrogen 7 mg/dL (8-23); Calcium 9.3 mg/dL (8.6-10.3); Carbon Dioxide 22 mEq/L (23-29); Chloride 103 mEq/L (98-107); Glucose 81 mg/dL (70-105); Osmolality,Calculated 285 (280-300); Potassium 4.1 mEq/L (3.5-5.1); Sodium 139 mEq/L (136-145); eGFR For African Americans > 60 (> 60); eGFR For Non-African Americans > 60 (> 60)
[2020-12-29] MEDS: levETIRAcetam 250 MG TABLET PO SCH ×2 (06:13→18:22)
[2020-12-29] MEDS: *HR* Enoxaparin 40 MG/0.4 ML SYRINGE SQ SCH (06:13)
[2020-12-29] MEDS: Aspirin Enteric Coated 81 MG Tablet PO SCH (08:49)
[2020-12-29] MEDS: Thiamine (B-1) 100 MG, Folic Acid 1 MG, MVI, adult with vitamin K 10 ML in 0.9 % Sodi... IVPB SCH (08:49)
[2020-12-30] MEDS: levETIRAcetam 250 MG TABLET PO SCH ×2 (05:12→16:57)
[2020-12-30] MEDS: *HR* Enoxaparin 40 MG/0.4 ML SYRINGE SQ SCH (05:12)
[2020-12-30] MEDS: Aspirin Enteric Coated 81 MG Tablet PO SCH (07:34)
[2020-12-30] MEDS: Thiamine (B-1) 100 MG, Folic Acid 1 MG, MVI, adult with vitamin K 10 ML in 0.9 % Sodi... IVPB SCH (16:57)
[2020-12-31] MEDS: *HR* Enoxaparin 40 MG/0.4 ML SYRINGE SQ SCH (05:10)
[2020-12-31] MEDS: levETIRAcetam 250 MG TABLET PO SCH ×2 (05:10→16:25)
[2020-12-31] MEDS: Aspirin Enteric Coated 81 MG Tablet PO SCH (07:14)
[2020-12-31] MEDS: lisinopriL 20 MG TABLET PO SCH (10:18)
[2020-12-31] MEDS: Gabapentin 300 MG CAPSULE PO SCH ×2 (15:59→21:04)
[2020-12-31] MEDS: Thiamine (B-1) 100 MG, Folic Acid 1 MG, MVI, adult with vitamin K 10 ML in 0.9 % Sodi... IVPB SCH (16:26)
[2021-01-01 04:24] VITALS: O2SAT 98
[2021-01-01] MEDS: levETIRAcetam 250 MG TABLET PO SCH (05:24)
[2021-01-01] MEDS: *HR* Enoxaparin 40 MG/0.4 ML SYRINGE SQ SCH (05:25)
[2021-01-01] MEDS: lisinopriL 20 MG TABLET PO SCH (10:00)
[2021-01-01] MEDS: Gabapentin 300 MG CAPSULE PO SCH ×2 (10:01→15:35)
[2021-01-01] MEDS: Aspirin Enteric Coated 81 MG Tablet PO SCH (10:01)
[2021-01-01 10:27] VITALS: BP 128/78; PULSE 54; TEMP 97.7
[2021-01-01] MEDS ORDERED: traZODone 50 MG TABLET PO PRN (11:32)
[2021-01-01] MEDS ORDERED: hydrOXYzine pamoate 25 MG CAPSULE PO SCH (11:45)
[2021-01-01 12:03] LABS: Adenovirus Not Detected (Not Detect); Coronavirus 229E Not Detected (Not Detect); Coronavirus HKU1 Not Detected (Not Detect); Coronavirus NL63 Not Detected (Not Detect); Coronavirus OC43 Not Detected (Not Detect)
[2021-01-01 12:04] LABS: Bordetella Pertussis Not Detected (Not Detect); Chlamydophila pneumoniae Not Detected (Not Detect); Human Metapneumovirus Not Detected (Not Detect); Human Rhinovirus/Enterovirus Not Detected (Not Detect); Influenza A Subtype 2009 H1 Not Detected (Not Detect); Influenza B Not Detected (Not Detect); Mycoplasma pneumoniae Not Detected (Not Detect); Parainfluenza Virus 1 Not Detected (Not Detect); Parainfluenza Virus 2 Not Detected (Not Detect); Parainfluenza Virus 3 Not Detected (Not Detect); Parainfluenza Virus 4 Not Detected (Not Detect); Respiratory Syncytial Virus Not Detected (Not Detect); SARS-CoV-2 Not Detected (Not Detect)
[2021-01-02] MEDS ORDERED: hydrOXYzine pamoate 25 MG CAPSULE PO SCH (09:00)
== END 2021-01-01 17:33 ==
LOC: 3BNU 19:24 → EMEROOARM 19:24 → SUATTDRO 22:47 → 3BNU 23:18
PROVIDERS: ADMIT Family Medicine; ATTEND Internal Medicine

== ENCOUNTER 2021-05-05 17:49 | Inpatient (IN) ==
[2021-05-05 18:32] LABS: Basophils % 0.6 %; Eosinophils # 0.3 K/mcL (0.0-0.6); Eosinophils % 5.5 %; Hematocrit 41.6 % (37.5-50.1); Hemoglobin 14.1 g/dL (12.9-16.9); Immature Granulocytes % 0.4 % (0-4); Lymphocytes # 2.1 K/mcL (0.6-4.6); Lymphocytes % 41.7 %; Mean Corpuscular HGB Conc 33.9 g/dL (31.6-35.5); Mean Corpuscular Volume 94.5 fL (83.0-100.0); Mean Platelet Volume 9.2 fL (9.4-12.4); Monocytes # 0.5 K/mcL (0.0-1.3); Neutrophils # 2.1 K/mcL (1.6-8.9); Platelet Count 234 K/mcL (140-400); Red Cell Distribution Width 13.5 % (11.5-14.5); Segmented Neutrophils % 41.8 %; White Blood Count 5.1 K/mcL (4.3-11.1)
[2021-05-05 18:40] LABS: INR 0.9
[2021-05-05 18:43] LABS: Activated Partial Thrombo Time 29.3 Seconds (26.0-36.0)
[2021-05-05 18:52] LABS: BUN/Creatinine Ratio 9 (6-26); Blood Urea Nitrogen 6 mg/dL (8-23); Calcium 8.6 mg/dL (8.6-10.3); Carbon Dioxide 28 mEq/L (23-29); Chloride 100 mEq/L (98-107); Glucose 101 mg/dL (70-105); Osmolality,Calculated 276 (280-300); Potassium 3.8 mEq/L (3.5-5.1); Sodium 134 mEq/L (136-145); Troponin I < 0.03 ng/mL (< 0.04); eGFR For African Americans > 60 (> 60); eGFR For Non-African Americans > 60 (> 60)
[2021-05-05] MEDS ORDERED: Ondansetron ODT 4 MG TAB.RAPDIS SL PRN (21:36)
[2021-05-05] MEDS ORDERED: Ibuprofen 400 MG TABLET PO PRN (21:36)
[2021-05-05] MEDS ORDERED: Naloxone 0.4 MG/ML INJ IVP PRN (21:36)
[2021-05-05] MEDS ORDERED: *HR* LORazepam 2 MG/ML VIAL IVP PRN ×3 (21:39)
[2021-05-05 23:16] LABS: Amphetamine Screen,Urine Negative ng/mL (Cutoff=1000); Barbiturate Screen,Urine Negative ng/mL (Cutoff=200); Benzodiazepines Screen,Urine Positive ng/mL (Cutoff=200); Cannabinoid Screen,Urine Negative ng/mL (Cutoff = 50); Cocaine Screen,Urine Negative ng/mL (Cutoff= 300); Opiate Screen,Urine Negative ng/mL (Cutoff=300); Phencyclidine Screen,Urine Negative ng/mL (Cutoff=25)
[2021-05-06] MEDS ORDERED: levETIRAcetam 1,000 MG in 0.9 % Sodium Chloride 100 ML IVPB ONE (01:46)
[2021-05-06] MEDS ORDERED: Thiamine (B-1) 100 MG, Folic Acid 1 MG, MVI, adult with vitamin K 10 ML in 0.9 % Sodi... IVPB SCH ×3 (01:46→18:00)
[2021-05-06 04:54] LABS: Hematocrit 44.5 % (37.5-50.1); Hemoglobin 14.9 g/dL (12.9-16.9); Mean Corpuscular HGB Conc 33.5 g/dL (31.6-35.5); Mean Corpuscular Hemoglobin 31.9 pg (28.0-33.3); Mean Corpuscular Volume 95.3 fL (83.0-100.0); Mean Platelet Volume 9.2 fL (9.4-12.4); Platelet Count 272 K/mcL (140-400); Red Blood Count 4.67 M/mcL (4.19-5.50); White Blood Count 4.9 K/mcL (4.3-11.1)
[2021-05-06 05:10] LABS: BUN/Creatinine Ratio 7 (6-26); Blood Urea Nitrogen 5 mg/dL (8-23); Calcium 8.9 mg/dL (8.6-10.3); Carbon Dioxide 26 mEq/L (23-29); Chloride 104 mEq/L (98-107); Glucose 79 mg/dL (70-105); Osmolality,Calculated 282 (280-300); Potassium 4.1 mEq/L (3.5-5.1); Sodium 138 mEq/L (136-145); eGFR For African Americans > 60 (> 60); eGFR For Non-African Americans > 60 (> 60)
[2021-05-06] MEDS ORDERED: Gabapentin 300 MG CAPSULE PO PRN (13:35)
[2021-05-06] MEDS ORDERED: Melatonin 3 MG TABLET PO PRN (13:35)
[2021-05-06] MEDS: levETIRAcetam 250 MG TABLET PO SCH ×2 (15:07→20:34)
[2021-05-07] MEDS: *HR* Enoxaparin 40 MG/0.4 ML SYRINGE SQ SCH (04:33)
[2021-05-07] MEDS: Folic Acid 1 MG TABLET PO SCH (07:40)
[2021-05-07] MEDS: Aspirin Enteric Coated 81 MG Tablet PO SCH (07:40)
[2021-05-07] MEDS: Thiamine (B-1) 100 MG TABLET PO SCH (07:40)
[2021-05-07] MEDS: levETIRAcetam 250 MG TABLET PO SCH ×2 (07:40→21:59)
[2021-05-07] MEDS: lisinopriL 10 MG TABLET PO SCH (07:40)
[2021-05-07] MEDS: Gabapentin 300 MG CAPSULE PO SCH ×2 (15:46→21:59)
[2021-05-08 03:09] VITALS: BP 132/68; PULSE 68; TEMP 98; O2SAT 97
[2021-05-08] MEDS: *HR* Enoxaparin 40 MG/0.4 ML SYRINGE SQ SCH (06:53)
[2021-05-08] MEDS: Gabapentin 300 MG CAPSULE PO SCH ×2 (09:14→16:23)
[2021-05-08] MEDS: Folic Acid 1 MG TABLET PO SCH (09:14)
[2021-05-08] MEDS: Aspirin Enteric Coated 81 MG Tablet PO SCH (09:15)
[2021-05-08] MEDS: Thiamine (B-1) 100 MG TABLET PO SCH (09:15)
[2021-05-08] MEDS: levETIRAcetam 250 MG TABLET PO SCH (09:15)
[2021-05-08] MEDS: lisinopriL 10 MG TABLET PO SCH (09:15)
== END 2021-05-08 17:24 | disposition home or self-care (01) | DRG 101 ==
LOC: 2ANU 17:49 → EMEROOARM 17:49 → SUATTDRO 20:36 → 2ANU 21:16
PROVIDERS: ADMIT Internal Medicine; ATTEND Student in an Organized Health Care Education/Training Program